=== PATIENT | male | born 1955 | race Caucasian/White ===

== ENCOUNTER 2021-04-28 09:46 | Outpatient (CLI) | payer MEDICARE, SELFPAY ==
--- NOTE | 2021-04-28 10:01 | CT_ITS ---
WS: [id number] CT TEMPORAL BONES WITHOUT CONTRAST HISTORY: DIZZINESS, MIXED CONDUCTIVE AND SENSORINEURAL HEARING LOSS, TECHNIQUE: Axial 1.25 mm imaging is performed through the temporal bones. High resolution 0.63 mm ref ormats were then submitted in axial, coronal and sagittal planes. DLP: 654.[address] scans at [facility] use at least one of these dose optimization techniques: automat ed exposure control; mA and/or kV adjustment per patient size (includes targeted exams where dose is matched to clinical indication); or iterative reconstruction. COMPARISON: None available. Osseous destruction or increased soft tissue within the internal or external auditory canals. Prussak space is normal. The middle air ossicles appear normally developed. There is no significant deformit y of the scutum. No osseous destruction or expansion of soft tissue intracranially. Mastoid air cells are clear without significant increased fluid or coalescence. The adjacent soft tissues are negative. Orbits and globes are normal. Mild atherosclerotic plaque in the intracranial carotid arteries. CT/CT temporal bone wo con* [id number] IMPRESSION: 1. Negative temporal bone CT for abnormality involving the internal auditory c anals. 2. Normal mastoid air cells.
--- NOTE | 2021-04-28 10:15 | MR_ITS ---
WS: [id number] MRI BRAIN WITH HIGH-RESOLUTION IMAGING THROUGH THE INTERNAL AUDITORY CANALS WITHOUT AND WITH CONTRAST HISTORY: MIXED CONDUCTIVE AND SENSORINEURAL HEARING LOSS, BILATERAL COMPARISON: None available. TECHNIQUE: Multiplanar, multisequence imaging is performed through the brain. Additional 3 mm imaging performed in multiple planes through the internal auditory canal. Postcontrast imaging with 12 ml's of MultiHance. No acute intracranial hemorrhage, midline shift, edema or mass effect. Numerous scattered T2 and FLAIR signal hyperintensities bilaterally extending from the vertex into th e centrum semiovale and garcia radiata. These are predominantly subcortical and slightly more than ex pected for the patient's age. Prior lacunar infarct LEFT frontal lobe. Ventricles and extra-axial spaces are normal. No inferior displacement of cerebellar tonsils. Clivus and pituitary gland are normal. Internal and external auditory canals: Unremarkable. Cranial nerves VII and VIII complexes: Unremarkable. No enhancement or mass. Cerebellopontine angles: Normal. Paranasal sinuses: Normal. Mastoid air cells: Normal. Calvarium and scalp: Normal. Visualized [facility] [place] and dural venous sinuses demonstrate no abnormality. MR/MR iac's wo/w con* [id number] IMPRESSION: 1. No mass or abnormal enhancement involving the internal or external auditory canals. 2. Increased T2 signal slightly greater than expected for age and probably rel ated to small vessel ischemic disease.
[2021-04-28] MEDS: gadobenate dimeglumine 20 mL vial IV (11:09)
== END 2021-04-28 09:47 | disposition home or self-care (01) ==
PROVIDERS: Visit Provider Specialist
DX: H90.6 Mixed conductive and sensorineural hearing loss, bilateral (principal)
CPT/HCPCS: 70480; 70553; A9577

== ENCOUNTER → 2021-09-21 12:36 | Outpatient (BNVA) | payer MEDICARE, SELFPAY | PROVIDERS: Visit Provider Otolaryngology Otology & Neurotology | DX: Z01.812 Encounter for preprocedural laboratory examination (principal); Z20.822 Contact with and (suspected) exposure to COVID-19 | CPT/HCPCS: 87635 ==